=== PATIENT | male | born 1995 | race Two or more races ===

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

== ENCOUNTER 2017-08-31 19:13 | Emergency (ER) | payer MEDICAID ==
[~2017-08-31] VITALS: Ht 177.8 cm; Wt 90.7 kg
[~2017-08-31 19:13] MED LIST changes: +KEFLEX500 MG ORAL; +NYSTATIN15 GM TOPIC
[2017-08-31] MEDS ORDERED: HYDROCORTISONE-30 GM TOPIC (19:37)
[2017-08-31] MEDS ORDERED: PROMETHAZINE-D118 ML ORAL (19:37)
--- NOTE | 2017-08-31 19:40 | Emergency Room Report ---
History of Present Illness General Chief Complaint: Upper Respiratory Illness Source: Patient Present Illness HPI Patient reports to ER complaining of dry cough x1week. Patient denies history of sick contacts. Patient denies fever, nausea, vomiting, diarrhea, chest pain, SOB. Patient also complains of skin irritation on tip of penis. Patient states he is uncircumcised and cleans penis regularly.Patient unsure if using new soaps and shampoos. Patient denies history of sexual contact. Patient denies penile discharge, dysuria, hematuria. Allergies: Coded Allergies: No Known Allergies (Unverified , 08/19/12) Patient History Past Medical History: see triage record Pertinent Family History: none Social History: Denies: smoking, alcohol use, drug use Immunizations: UTD Reviewed Nursing Documentation: PMH: Agreed, PSxH: Agreed Nursing Documentation-PMH Past Medical History: No Stated History Review of Systems All Other Systems: negative except mentioned in HPI Physical Exam Vital Signs Date Time Temp Pulse Resp B/P (MAP) Pulse Ox O2 Delivery O2 Flow Rate FiO2 08/31/17 19:20 98.1 76 18 120/66 98 Room Air Sp02 EP Interpretation: reviewed, normal General Appearance: no apparent distress, alert, GCS 15, non-toxic Eyes: bilateral eye normal inspection, bilateral eye PERRL ENT: hearing grossly normal, normal pharynx, no angioedema, normal voice, TMs + canals normal, uvula midline, moist mucus membranes Neck: full range of motion, supple/symm/no masses Respiratory: chest non-tender, lungs clear, normal breath sounds, no respiratory distress, no accessory muscle use, speaking full sentences Cardiovascular #1: regular rate, rhythm Genitourinary: scrotum normal, other - penis uncircumcised Musculoskeletal: back normal, gait/station normal, normal range of motion, non- tender Neurologic: alert, oriented x3, responsive, motor strength/tone normal, sensory intact, speech normal Psychiatric: mood/affect normal Skin: warm/dry, palpation normal, well hydrated, rash - head of penis: erythematous macules, no vesicles, no blisters, no drainage, no blood, no pus Lymphatic: no adenopathy Medical Decision Making PA Attestation Dr. Escamilla is my supervising physician with whom patient management has been discussed with. Diagnostic Impression: Primary Impression: Balanitis Additional Impression: URI (upper respiratory infection) ER Course Pt presents to ED c/o cough and rash on tip of penis. DDX for cough considered but are not limited to influenza, viral URI, laryngitis, rhinitis, sinusitis, otitis media. DDX for rash on tip of penis considered but are not limited to balantitis, herpes, atopic dermatitis. VITAL SIGNS are WNL, patient is afebrile ORDERS: none required at this time, diagnosis is clinical. ED INTERVENTIONS: none required at this time. DISCHARGE: At this time pt is stable for d/c to home. -Rx given for Promethazine syrup for cough sx. Do no drink alcohol, drive, or operate heavy machinery while taking cough syrup as this may cause drowsiness. Patient to take medications as instructed. Patient instructed to clean head of penis with soap and water. Will provide with patient care instructions and any necessary prescriptions. Patient understands and agrees with treatment plan. Care plan and follow-up instructions provided. Patient instructed to follow-up with primary care provider in 3 - 5 days. Patient questions asked and answered. ER precautions given. Patient instructed to return to ER immediately for any new or worsening of symptoms including but not limited to increasing SOB, persistent fever. Last Vital Signs Date Time Temp Pulse Resp B/P (MAP) Pulse Ox O2 Delivery O2 Flow Rate FiO2 08/31/17 19:20 98.1 76 18 120/66 98 Room Air Disposition: HOME, SELF-CARE Condition: Stable Scripts D-Methorphan Hb/Prometh Hcl* (PROMETHAZINE-DM SYRUP*) 118 Ml Syrup 5 ML ORAL Q6H Y for For Cough for 7 Days, #118 ML 0 Refills Prov: Sukumar Snyder 08/31/17 Patient Instructions: Balanitis, Upper Respiratory Infection, Adult Additional Instructions: Followup with primary care provider in 3 -5 days for further treatment and referral. Take medications as directed. Wash affected area with soap and water thoroughly. Patient questions asked and answered. ER precautions given, patient instructed to return to ER immediately for any new or worsening of symptoms. Sukumar Snyder Aug 31, 2017 19:40
[2017-08-31 19:50] VITALS: BP 120/66
[2017-08-31 19:56] VITALS: BP 120/66
== END 2017-08-31 19:56 | disposition home or self-care (01) ==
LOC: EMR 19:56
DX: N48.1 Balanitis (principal); J06.9 Acute upper respiratory infection, unspecified
CPT/HCPCS: 99283